=== PATIENT | male | born 1960 | race Caucasian/White ===

== ENCOUNTER 2020-04-15 21:29 | Emergency (ER) | payer OTHER ==
[2020-04-15] MEDS ORDERED: methylPREDNISolone Sodium Succinate 40 MG/1 ML SDV IM ONE (21:51)
--- NOTE | 2020-04-15 21:56 | EDM.PDOC ---
ED HPI GENERAL MEDICAL PROBLEM - General Chief Complaint: Allergic Reaction Stated Complaint: [facility] Time Seen by Provider: 04/15/20 21:47 Source of Information: Reports: Patient, EMS, RN Notes Reviewed History Limitations: Reports: No Limitations - History of Present Illness INITIAL COMMENTS - FREE TEXT/NARRATIVE: 59-year-old gentleman presents emergency department today via EMS for allergic reaction unsure of what he was exposed to he has had an event similar to this about 15 years ago that involved throat swelling however this particular event just involve swelling in the face and lips EMS did provide 50 mg Benadryl IM which she states has helped significantly swelling in his face has gone down he has no throat sensation no difficulty breathing no rash Treatments [employer]: Reports: See EMS Report - Related Data Allergies Allergy/AdvReac Type Severity Reaction Status Date / Time No Known Allergies Allergy Verified 04/15/20 21:35 Home Meds: Home Meds . [Unable to Verify Home Med List] 04/15/20 [History] Past Medical History Cardiovascular History: Reports: Hypertension Musculoskeletal History: Reports: Fracture Endocrine/Metabolic History: Reports: Diabetes, Type II - Infectious Disease History Infectious Disease History: Reports: Chicken Pox, Measles, Mumps - Past Surgical History HEENT Surgical History: Reports: Eye Surgery GI Surgical History: Reports: Appendectomy Social & Family History - Tobacco Use Smoking Status *Q: Never Smoker - Caffeine Use Caffeine Use: Reports: Coffee - Alcohol Use Days Per Week of Alcohol Use: 7 Number of Drinks Per Day: 3 Total Drinks Per Week: 21 - Recreational Drug Use Recreational Drug Use: Yes Drug Use in Last 12 Months: No Recreational Drug Type: Reports: Marijuana/Hashish ED ROS ALLERGIC REACTION - Review of Systems Review Of Systems: See Below Constitutional: Reports: No Symptoms HEENT: Reports: Other (Facial swelling) Respiratory: Reports: No Symptoms Cardiovascular: Reports: No Symptoms GI/Abdominal: Reports: No Symptoms Skin: Reports: No Symptoms ED EXAM GENERAL NO PERIP PULSE - Physical Exam Exam: See Below Text/Narrative:: Mouth mucosa is moist and pink there is no erythema there is a known soft palate tongue is midline uvula is midline however he does have market edema around the lips with some facial swelling bilaterally Exam Limited By: No Limitations General Appearance: Alert, WD/WN, No Apparent Distress Neck: Normal Inspection, Supple, Non-Tender, Full Range of Motion Respiratory/Chest: No Respiratory Distress, Lungs Clear, Normal Breath Sounds, No Accessory Muscle Use, Chest Non-Tender Cardiovascular: Regular Rate, Rhythm, No Murmur Course - Vital Signs Last Recorded V/S: Last Vital Signs Temp 97.7 F 04/15/20 21:41 Pulse 83 04/15/20 21:41 Resp 16 04/15/20 21:41 BP 138/89 04/15/20 21:41 Pulse Ox 97 04/15/20 21:41 - Orders/Labs/Meds Meds: Medications Discontinued Medications Generic Name Dose Route Start Last Admin Trade Name Ashok PRN Reason Stop Dose Admin Methylprednisolone Sodium Succinate 40 mg 04/15/20 21:51 04/15/20 22:09 Solu-Medrol IM 04/15/20 21:52 Not Given ONETIME ONE Methylprednisolone Sodium Succinate 40 mg 04/15/20 21:59 04/15/20 22:06 Solu-Medrol IVPUSH 04/15/20 22:00 40 mg ONETIME ONE Administration Departure - Departure Time of Disposition: 00:12 Disposition: Home, Self-Care 01 Condition: Fair Clinical Impression: Allergic reaction Qualifiers: Encounter type: initial encounter Qualified Code(s): T78.40XA - Allergy, unspecified, initial encounter - Discharge Information Instructions: Allergies, Adult, [id number] Referrals: PCP,None [Primary Care Provider] - Forms: ED Department Discharge Additional Instructions: Use Benadryl as needed for any allergic type symptoms, you provided a prescription for injectable epinephrine, please followup with your primary care provider in 3-5 days if not better, please call return to the emergency department with worsening of symptoms. Sepsis Event Note - Evaluation Sepsis Screening Result: No Definite Risk - Focused Exam Vital Signs: Vital Signs Temp Pulse Resp BP Pulse Ox 04/15/20 21:41 97.7 F 83 16 138/89 97 04/15/20 21:33 97.7 F 83 16 138/89 97 Date Exam was Performed: 04/16/20 Time Exam was Performed: 00:11 - Assessment/Plan Plan: Assessment Acuity = acute Site and laterality = allergic reaction Etiology = unknown Manifestations = facial swelling now resolved Location of injury = Home Lab values = none Plan Had good improvement with the Benadryl provided, was provided Solu-Medrol while in the emergency department prescription written for injectable epinephrine and follow-up with his primary care next 3 to 5 days for reevaluation if no improvement This note was dictated using [employer] voice recognition software please call with any questions on syntax or grammar.
[2020-04-15] MEDS ORDERED: methylPREDNISolone Sodium Succinate 40 MG/1 ML SDV IVPUSH ONE (21:59)
== END 2020-04-16 00:19 | disposition home or self-care (01) ==
LOC: JP.ED 21:29
DX: T78.40XA Allergy, unspecified, initial encounter (principal); I10 Essential (primary) hypertension; E11.9 Type 2 diabetes mellitus without complications
CPT/HCPCS: 96374; 99284; J2920

== ENCOUNTER 2020-04-16 08:20 | Emergency (ER) | payer OTHER ==
[2020-04-16] MEDS ORDERED: methylPREDNISolone Sodium Succinate 125 MG/2 ML SDV IVPUSH ONE (08:44)
--- NOTE | 2020-04-16 08:47 | EDM.PDOC ---
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 He was seen last night and given 80 mg of Solu-Medrol and is been taking Benadryl. He woke up this morning with a swollen tongue and lips as well as his left cheek so the ambulance was called. He was placed on an epinephrine drip in route and is stable. He continues to have swelling. No systemic symptoms such as shortness of breath or hives at this time. Onset: Unknown/Unsure Duration: Waxing/Waning (Waxing and waning for the last 2 days) Associated Symptoms: Reports: No Other Symptoms. Denies: Cough, Shortness of Breath - Related Data Allergies Allergy/AdvReac Type Severity Reaction Status Date / Time No Known Allergies Allergy Verified 04/15/20 21:35 Home Meds: Home Meds Aspirin [Lo-Dose Aspirin EC] 81 mg PO DAILY 04/16/20 [History] Glimepiride 2 mg PO DAILY 04/16/20 [History] Linagliptin/Metformin Hcl [Jentadueto 2.5 mg-1000 mg Tab] 2.5 mg PO BID [History] Metoprolol Succinate 200 mg PO DAILY 04/16/20 [History] Sildenafil [Viagra] 100 mg PO ASDIRECTED 04/16/20 [History] amLODIPine Besylate [Amlodipine Besylate] 10 mg PO DAILY 04/16/20 [History] lisinopriL [Lisinopril] 40 mg PO DAILY 04/16/20 [History] Past Medical History Cardiovascular History: Reports: Hypertension Musculoskeletal History: Reports: Fracture Endocrine/Metabolic History: Reports: Diabetes, Type II - Infectious Disease History Infectious Disease History: Reports: Chicken Pox, Measles, Mumps - Past Surgical History HEENT Surgical History: Reports: Eye Surgery GI Surgical History: Reports: Appendectomy Social & Family History - Tobacco Use Smoking Status *Q: Never Smoker - Caffeine Use Caffeine Use: Reports: Coffee ED ROS ALLERGIC REACTION - Review of Systems Review Of Systems: See Below Constitutional: Denies: Fever, Chills HEENT: Reports: Throat Swelling, Other (Tongue and soft tissue swelling of the lips and left cheek). Denies: Throat Pain Respiratory: Denies: Shortness of Breath (No difficulty breathing at this time) Cardiovascular: Denies: Chest Pain Skin: Reports: Other (Some small reddened areas on his abdomen from resolved hives but no current flareup) Neurological: Reports: No Symptoms ED EXAM GENERAL NO PERIP PULSE - Physical Exam Exam: See Below Exam Limited By: No Limitations General Appearance: Alert, No Apparent Distress, Other (Looks anxious but no acute distress) Throat/Mouth: Other (Diffuse swelling of the tongue and soft tissue typical of angioedema, extending into the left buccal area) Head: Atraumatic, Facial Swelling Neck: Supple Respiratory/Chest: Lungs Clear Course - Vital Signs Last Recorded V/S: Last Vital Signs Temp 97.1 F 04/16/20 08:32 Pulse 107 H 04/16/20 08:32 Resp 23 H 04/16/20 08:32 BP 164/74 H 04/16/20 08:32 Pulse Ox 96 04/16/20 08:32 - Orders/Labs/Meds Meds: Medications Discontinued Medications Generic Name Dose Route Start Last Admin Trade Name Freq PRN Reason Stop Dose Admin Methylprednisolone Sodium Succinate 125 mg 04/16/20 08:44 04/16/20 08:47 Solu-Medrol IVPUSH 04/16/20 08:45 125 mg ONETIME ONE Administration - Re-Assessments/Exams Free Text/Narrative Re-Assessment/Exam: 04/16/20 10:25 Over the course of an hour the patient swelling slowly improved, it was still present but he was able to speak and swallow and still developed no respiratory issues. He was discharged with instructions and education on angioedema and will consider going home closer to a larger hospital rather than staying the weekend. Departure - Departure Time of Disposition: 10:38 Disposition: Home, Self-Care 01 Clinical Impression: Angioedema Qualifiers: Encounter type: subsequent encounter Qualified Code(s): T78.3XXD - Angioneurotic edema, subsequent encounter - Discharge Information Instructions: Angioedema, [id number] Referrals: PCP,None [Primary Care Provider] - Forms: ED Department Discharge Care Plan Goals: Continue your current medications except aspirin until rechecked by your primary providers next week when you return home. Consider returning sooner if not improving satisfactorily or you develop other concerns. Sepsis Event Note - Evaluation Sepsis Screening Result: No Definite Risk - Focused Exam Vital Signs: Vital Signs Temp Pulse Resp BP Pulse Ox 04/16/20 08:32 97.1 F 107 H 23 H 164/74 H 96 Date Exam was Performed: 04/16/20 Time Exam was Performed: 11:14
== END 2020-04-16 10:36 | disposition home or self-care (01) ==
LOC: JP.ED 08:20
DX: T78.3XXA Angioneurotic edema, initial encounter (principal); I10 Essential (primary) hypertension; E11.9 Type 2 diabetes mellitus without complications; Z79.82 Long term (current) use of aspirin; Z79.84 Long term (current) use of oral hypoglycemic drugs; Z79.899 Other long term (current) drug therapy
CPT/HCPCS: 96374; 99284; J2930